=== PATIENT | male | born 1960 | race Caucasian/White ===

== ENCOUNTER 2017-06-29 10:14 | Day surgery (SDC) | payer OTHER ==
[~2017-06-29 10:14] MED LIST: PROPOFOL INJ 200 MG/20 ML VIAL IV ONE
[2017-06-29 11:56] VITALS: BP 126/72
--- NOTE | 2017-06-29 12:03 | Operative Report ---
Operative Report DATE OF SURGERY: 06/29/17 Operative Report: The risks, benefits and alternatives of the procedure including risks of bleeding, perforation requiring surgery are explained to the patient in detail and informed consent is obtained. Patient was taken back to the endoscopy suite and placed in the left, lateral decubital position. Timeout was called. Propofol medications administered. A rectal examination was done which did not reveal any masses, tears or fissures. An Olympus videoscope was inserted into the patient's rectum. The scope was then carefully advanced all the way to the cecum. The cecum is identified by the usual anatomical landmarks including the ileocecal valve as well as the appendiceal office. Photodocumentation is obtained. Prep is good. The scope was then sequentially pulled back via the various segments of the colon including the ascending colon, hepatic flexure, transverse colon, splenic flexure, descending colon and finding to the rectosigmoid portions of the colon. Retroflexion maneuvers performed. PREOPERATIVE DIAGNOSIS: Personal history of polyps POSTOPERATIVE DIAGNOSIS: Small descending colon polyp removed via biopsy forceps. Internal hemorrhoids OPERATION: Colonoscopy with biopsy SURGEON: CHI DELEON ANESTHESIA: LMAC TISSUE REMOVED OR ALTERED: Mucosal specimen obtained COMPLICATIONS: None. ESTIMATED BLOOD LOSS: None. INTRAOPERATIVE FINDINGS: Descending colon polyp removed via biopsy forceps. Internal hemorrhoids PROCEDURE: Patient tolerated procedure well. No immediate postprocedure complications are noted. Patient discharged in good condition. Discharge date 06/29/2017. Discharge diet: Regular. Discharge activity: Regular. 2-3 week follow-up to discuss findings. 5 year surveillance colonoscopy. We will wait on pathology. Patient is instructed to call the office or proceed to the emergency room should there be any further problems or questions.
== END 2017-06-29 11:55 | disposition home or self-care (01) ==
LOC: END 10:14
PROVIDERS: ATTEND Internal Medicine Gastroenterology
PROC: 0DBM8ZX Excision of Descending Colon, Via Natural or Artificial Opening Endoscopic, Diagnostic (ICD-10-PCS; principal; 2017-06-29 12:30)
DX: Z12.11 Encounter for screening for malignant neoplasm of colon (principal); D12.4 Benign neoplasm of descending colon; K64.8 Other hemorrhoids; E11.9 Type 2 diabetes mellitus without complications; I10 Essential (primary) hypertension; E78.00 Pure hypercholesterolemia, unspecified; F17.210 Nicotine dependence, cigarettes, uncomplicated; Z79.82 Long term (current) use of aspirin; Z79.899 Other long term (current) drug therapy; Z79.84 Long term (current) use of oral hypoglycemic drugs
CPT/HCPCS: 45380; 82962; 88305 ×2; J2704; 810